=== PATIENT | female | born 1990 | race Caucasian/White ===

== ENCOUNTER 2016-08-08 21:03 | Emergency (ER) | payer MEDICAID, OTHER ==
[~2016-08-08] VITALS: Ht 157.5 cm; Wt 81.6 kg
[2016-08-08 21:05] VITALS: BP 144/99
--- NOTE | 2016-08-08 22:07 | NUR ---
PT TAKEN TO BED 4
--- NOTE | 2016-08-08 22:11 | NUR ---
PATIENT PRESENTS TO ED WITH C/O SOB AND THROAT AND ABD PAIN . PT DENIES N/V/D; SKIN IS PINK/WARM/DRY; AAOX4 WITH EVEN AND STEADY GAIT; LUNGS CLEAR BL; HR EVEN AND REGULAR; PT DENIES ANY FEVER, CP, OR COUGH AT THIS TIME; PATIENT STATES PAIN OF 5/10 AT THIS TIME; VSS; PATIENT POSITIONED FOR COMFORT; HOB ELEVATED; BEDRAILS UP X2; BED DOWN. ER MD MADE AWARE OF PT STATUS.
--- NOTE | 2016-08-08 22:52 | NUR ---
Dr. Lam evaluating patient at bedside.
[2016-08-08 23:30] VITALS: BP 133/89
--- NOTE | 2016-08-08 23:30 | NUR ---
Patient discharged with v/s stable. Written and verbal after care instructions given and explained. Patient verbalized understanding. Ambulatory with steady gait. All questions addressed prior to discharge. Advised to follow up with PMD.
== END 2016-08-08 23:30 | disposition home or self-care (01) ==
LOC: MED 21:03
DX: F41.9 Anxiety disorder, unspecified (principal); E05.90 Thyrotoxicosis, unspecified without thyrotoxic crisis or storm
CPT/HCPCS: 81002; 81025; 99283

== ENCOUNTER 2021-02-11 00:11 | Emergency (ER) | payer OTHER ==
[~2021-02-11] VITALS: Ht 157.5 cm; Wt 68.9 kg
[2021-02-11 00:13] VITALS: BP 155/82
--- NOTE | 2021-02-11 00:18 | NUR ---
PT AMBULATED TO BED #3
--- NOTE | 2021-02-11 00:25 | NUR ---
PT C/O OF CONGESTION AND SORE THROAT INTERMITTENTLY. PT STATES SHE HAS SOME GREEN PHELGM. PT DENIES NAUSEA AND VOMITTING. PT STATES SHE TOOK DAYQUIL EARLIER TODAY. MEDICAL HX: NONE NKA MEDICATIONS: NONE
[2021-02-11] MEDS ORDERED: GUAI-646 PO (01:17)
[2021-02-11] MEDS ORDERED: FLONAS NS (01:17)
[2021-02-11] MEDS ORDERED: CETI10TA81 PO (01:17)
--- NOTE | 2021-02-11 01:27 | NUR ---
COVID AND INFLUENZA COLLECTED AND SENT TO LAB.
[2021-02-11 02:15] VITALS: BP 155/82
--- NOTE | 2021-02-11 02:15 | NUR ---
Patient discharged with v/s stable. Written and verbal after care instructions given and explained. Patient alert, oriented and verbalized understanding of instructions. Ambulatory with steady gait. All questions addressed prior to discharge. ID band removed. Patient advised to follow up with PMD. Rx of CETIRIZINE,FLUTICASONE,AND GUAIFENESIN given. Patient educated on indication of medication including possible reaction and side effects. Opportunity to ask questions provided and answered.
--- NOTE | 2021-02-11 02:20 | NUR ---
The patient's care was reviewed and supervised by Argelia Sosa RN.
== END 2021-02-11 02:15 | disposition home or self-care (01) ==
LOC: MED 00:11
DX: J06.9 Acute upper respiratory infection, unspecified (principal); R03.0 Elevated blood-pressure reading, without diagnosis of hypertension; E05.90 Thyrotoxicosis, unspecified without thyrotoxic crisis or storm; Z20.822 Contact with and (suspected) exposure to COVID-19; Z79.899 Other long term (current) drug therapy
CPT/HCPCS: 87804; 99283

== ENCOUNTER 2021-03-05 06:15 | Emergency (ER) | payer OTHER ==
[~2021-03-05] VITALS: Ht 157.5 cm; Wt 68.0 kg
[2021-03-05 06:15] VITALS: BP 135/69
[~2021-03-05 06:15] MED LIST: CETI10TA81 PO; FLONAS NS; GUAI-646 PO
--- NOTE | 2021-03-05 06:15 | NUR ---
to bed ambulatory
--- NOTE | 2021-03-05 06:26 | NUR ---
Dr. Mcnair examining patient.
[2021-03-05] MEDS: MECLIZINE 25 MG TAB PO ONE (06:45)
[2021-03-05] MEDS: NACL 0.9% 1,000 ML IV ONE (06:45)
[2021-03-05 07:03] LABS: BASOPHILS % (AUTO) 0.7 % (0.0-2.0); EOSINOPHILS # (AUTO) 0.1 K/uL (0-0.4); EOSINOPHILS % (AUTO) 1.8 % (0.0-4.0); HEMATOCRIT 42.4 % (36-48); HEMOGLOBIN 14.8 g/dL (12.0-16.0); LYMPHOCYTES # (AUTO) 2.5 K/uL (2.5-16.5); LYMPHOCYTES % (AUTO) 39.3 % (20.5-51.1); MEAN CORPUSCULAR HEMOGLOBIN 26 pg (27-31); MEAN CORPUSCULAR HGB CONC 35 g/dL (33-37); MONOCYTES # (AUTO) 0.4 K/uL (0.8-1.0); MONOCYTES % (AUTO) 5.9 % (1.7-9.3); NEUTROPHILS # (AUTO) 3.3 K/uL (1.8-7.7); NEUTROPHILS % (AUTO) 52.3 % (42.2-75.2); PLATELET COUNT (AUTO) 312 K/uL (140-450); RED BLOOD CELL COUNT(AUTO) 5.66 MIL/uL (4.20-5.40); RED CELL DISTRIBUTION WIDTH 13.7 % (11.6-13.7); WHITE BLOOD COUNT (AUTO) 6.4 K/uL (4.8-10.8)
--- NOTE | 2021-03-05 07:05 | NUR ---
Pt report given to Elizabeth VOGEL. Transfer of care at this time.
[2021-03-05 07:48] LABS: ALBUMIN 3.6 g/dL (3.4-5.0); ANION GAP 13.6 (8-16); ASPARTATE AMINOTRANSFERASE 12 U/L (15-37); CARBON DIOXIDE 24.2 mmol/L (21-32); CHLORIDE 105 mmol/L (98-107); CREATININE 0.6 mg/dL (0.6-1.3); GFR ARICAN-AMERICAN 153 mL/min (>90); GLUCOSE 98 mg/dL (74-106); POTASSIUM 3.8 mmol/L (3.5-5.1); SODIUM SERUM 139 mmol/L (136-145); THYROID STIMULATING HORMONE < 0.01 uIU/mL (0.34-3.74); TOTAL BILIRUBIN 1.2 mg/dL (0.0-1.0); UREA NITROGEN, BLOOD 14 mg/dL (7-18)
--- NOTE | 2021-03-05 08:33 | NUR ---
DR ERICKSON AT BEDSIDE.
[2021-03-05] MEDS ORDERED: MECL-303 PO (08:38)
[2021-03-05 08:48] VITALS: BP 125/69
--- NOTE | 2021-03-05 08:49 | NUR ---
Patient discharged with v/s stable. Written and verbal after care instructions given and explained. Patient alert, oriented and verbalized understanding of instructions. Ambulatory with steady gait. All questions addressed prior to discharge. ID band removed. Patient advised to follow up with PMD. Rx of MECLIZINE HCI given. Opportunity to ask questions provided and answered.
--- NOTE | 2021-03-05 09:08 | NUR ---
Chart checked and completed. The patient's care was reviewed and supervised by Ruth Bianchi RN.
== END 2021-03-05 08:48 | disposition home or self-care (01) ==
LOC: MED 06:15
DX: R42 Dizziness and giddiness (principal); R51.9 Headache, unspecified; E07.9 Disorder of thyroid, unspecified; Z79.899 Other long term (current) drug therapy
CPT/HCPCS: 36415; 80053; 84443; 84702; 85025; 93005; 96360; 99284; J8597; J7030

== ENCOUNTER 2021-08-20 16:07 | Emergency (ER) | payer OTHER ==
[~2021-08-20] VITALS: Ht 162.6 cm; Wt 65.8 kg
[~2021-08-20 16:07] MED LIST changes: -GUAI-646 PO; +MECL-303 PO; +MUC600 PO
[2021-08-20 16:40] VITALS: BP 112/68
--- NOTE | 2021-08-20 17:04 | NUR ---
30 Y/O FEMALE BIB SELF DUE TO "PIMPLE LIKE BUMP ON TOUNGE" X1 WEEK. PT DENIES ANY TROUBLE BREATHING/SWALLOWING. PTSTATES IT "HURTS" WHEN SHE EATS/TALKS/DRINK WATER. PT STATES SHE HAS RINSED HER MOUTH WITH HYDROGEN PEROXIDE AND BAKING SODA. PT STATES THIS HAS MADE IT WORSE. PT ALERT AND ORIENTED X4. PMH: DENIES NKA
[2021-08-20] MEDS ORDERED: ACYC400T14 PO (17:20)
[2021-08-20 17:37] VITALS: BP 114/72
--- NOTE | 2021-08-20 17:38 | NUR ---
Patient discharged with v/s stable. Written and verbal after care instructions given and explained. Patient alert, oriented and verbalized understanding of instructions. Ambulatory with steady gait. All questions addressed prior to discharge. ID band removed. Patient advised to follow up with PMD. Rx of ZOVIRAX given. Patient educated on indication of medication including possible reaction and side effects. Opportunity to ask questions provided and answered.
== END 2021-08-20 17:38 | disposition home or self-care (01) ==
LOC: MED 16:07
DX: B00.2 Herpesviral gingivostomatitis and pharyngotonsillitis (principal); E05.90 Thyrotoxicosis, unspecified without thyrotoxic crisis or storm; Z79.899 Other long term (current) drug therapy
CPT/HCPCS: 99283

== ENCOUNTER 2023-06-28 11:13 | Emergency (ER) | payer OTHER ==
[~2023-06-28] VITALS: Ht 157.5 cm; Wt 85.3 kg
[~2023-06-28 11:13] MED LIST changes: +ACYC400T14 PO
[2023-06-28 11:16] VITALS: BP 116/76; PULSE 79; RESP 18; TEMP 98; O2SAT 100
[2023-06-28] MEDS ORDERED: ROB PO (11:43)
[2023-06-28] MEDS: DEXAMETHASONE 10 MG/ML VIAL IM ONE (11:46)
== END 2023-06-28 12:05 | disposition home or self-care (01) ==
LOC: MED 11:13
DX: R05.9 Cough, unspecified (principal); R06.02 Shortness of breath; R07.9 Chest pain, unspecified; E03.9 Hypothyroidism, unspecified; Z79.899 Other long term (current) drug therapy
CPT/HCPCS: 93005; 96372; 99283; J1100

== ENCOUNTER 2023-11-07 16:39 | Emergency (ER) | payer OTHER ==
[~2023-11-07] VITALS: Ht 160 cm; Wt 83.6 kg
[~2023-11-07 16:39] MED LIST changes: +ROB PO
[2023-11-07 16:44] VITALS: BP 116/77; PULSE 79; RESP 16; TEMP 98; O2SAT 98
[2023-11-07] MEDS ORDERED: ONDA8TAB87 PO (17:04)
[2023-11-07] MEDS ORDERED: IBUP-2213 PO (17:04)
[2023-11-07] MEDS ORDERED: CIPR500T4 PO (17:04)
[2023-11-07 17:09] VITALS: BP 117/74; PULSE 86; RESP 16; TEMP 36.66960; O2SAT 98
== END 2023-11-07 17:09 | disposition home or self-care (01) ==
LOC: MED 16:39
DX: R19.7 Diarrhea, unspecified (principal); R10.13 Epigastric pain; R11.0 Nausea; E05.90 Thyrotoxicosis, unspecified without thyrotoxic crisis or storm; Z79.899 Other long term (current) drug therapy
CPT/HCPCS: 99283